=== PATIENT | male | born 1975 | race Caucasian/White ===

== ENCOUNTER 2017-02-21 17:22 | Emergency (ER) | payer MEDICAID ==
[~2017-02-21] VITALS: Ht 167.6 cm; Wt 52.2 kg
[2017-02-21 17:25] VITALS: BP 110/72
[2017-02-21] MEDS ORDERED: SODIUM CHLORIDE 0.9% 1,000ML IVBOLUS ONE (18:30)
[2017-02-21] MEDS ORDERED: MORPHINE SULFATE 4 MG/ML, 1ML IVPush PRN (18:30)
[2017-02-21] MEDS ORDERED: LORazepam 2 MG/ML, 1ML IVPush ONE (18:30)
[2017-02-21] MEDS ORDERED: PIPERACILLIN/TAZO/PMX 3.375GM 50 ML IVPB ONE (18:30)
[2017-02-21] MEDS ORDERED: ONDANSETRON 2MG/ML, 2ML IVPush ONE (18:30)
[2017-02-21] MEDS ORDERED: SODIUM CHLORIDE FLUSH 10ML SYR IVF ONE (18:30)
== END 2017-02-21 18:27 | disposition left against medical advice (07) ==
LOC: ED 17:30
DX: L03.114 Cellulitis of left upper limb (principal)
CPT/HCPCS: 99281

== ENCOUNTER 2017-02-21 23:42 | Inpatient (IN) | payer MEDICAID ==
[~2017-02-21] VITALS: Ht 165.1 cm; Wt 62.0 kg
[2017-02-22] MEDS ORDERED: SODIUM CHLORIDE 0.9% 1,000ML IVBOLUS ONE (01:00)
[2017-02-22] MEDS ORDERED: VANCOMYCIN PMX 1GM/200ML 200 ML IV ONE (01:00)
[2017-02-22] MEDS ORDERED: VANCOMYCIN PER PHARMACY IV ONE (01:00)
[2017-02-22] MEDS ORDERED: CEFTRIAXONE PMX 1GM/50ML 50 ML IVPB ONE (01:00)
[2017-02-22] MEDS ORDERED: CEFTRIAXONE PMX 1GM/50ML 50 ML ONE (01:03)
[2017-02-22 01:22] LABS: MEAN CORPUSCULAR HEMOGLOBIN 29.4 pg (27.5-34.5); MEAN CORPUSCULAR HGB CONC 33.6 g/dL (33.2-36.2); MEAN CORPUSCULAR VOLUME 87.7 fL (81-97); MEAN PLATELET VOLUME 7.2 fL (7.4-10.4); PLATELET COUNT 351 x10^3/uL (130-400); RED BLOOD COUNT 4.71 x10^6/uL (4.38-5.82); RED CELL DISTRIBUTION WIDTH 13.1 % (9.4-14.8)
[2017-02-22 01:34] LABS: ALBUMIN 3.1 g/dL (3.4-5.0); ANION GAP 11 mmol/L (5-15); CALCIUM 8.4 mg/dL (8.5-10.1); CHLORIDE 96 mmol/L (98-107); CREATININE 0.68 mg/dL (0.7-1.3)
[2017-02-22] MEDS ORDERED: IBUPROFEN 200 MG TABLET PO ONE (02:00)
[2017-02-22] MEDS ORDERED: SODIUM CHLORIDE 0.9% 1,000 ML IV ONE (02:01)
[2017-02-22 02:13] LABS: BASOPHILS # (AUTO) 0.02 x10^3/uL (0-0.1); BASOPHILS % (AUTO) 0 % (0-1); EOSINOPHILS # (AUTO) 0.05 x10^3/uL (0-0.4); EOSINOPHILS % (AUTO) 0 % (1-7); LYMPHOCYTES # (AUTO) 1.75 x10^3/uL (1-3.4); LYMPHOCYTES % (AUTO) 10 % (22-44); MD SCAN; MONOCYTES # (AUTO) 1.46 x10^3/uL (0.2-0.8); MONOCYTES % (AUTO) 8 % (2-9); NEUTROPHILS % (AUTO) 82 % (42-75)
[2017-02-22] MEDS ORDERED: IBUPROFEN 200 MG TABLET ONE (02:20)
[2017-02-22] MEDS ORDERED: MORPHINE SULFATE 4 MG/ML, 1ML IVPush PRN (02:30)
[2017-02-22] MEDS ORDERED: ONDANSETRON 2MG/ML, 2ML IVPush PRN ×2 (02:30→03:30)
[2017-02-22 02:52] VITALS: BP 129/84
[2017-02-22] MEDS ORDERED: VANCOMYCIN PER PHARMACY MC PRN (03:00)
[2017-02-22] MEDS ORDERED: POLYETHYLENE GLYCOL 17 GM PACKET PO PRN (03:30)
[2017-02-22] MEDS: NICOTINE 7 MG/24 HR PATCH.TD24 TD SCH (03:30)
[2017-02-22] MEDS ORDERED: KETOROLAC 30 MG/1 ML IM PRN (03:30)
[2017-02-22] MEDS ORDERED: ENALAPRILAT 1.25 MG/ML, 2ML IVPush PRN (03:30)
[2017-02-22] MEDS ORDERED: hydrALAzine 20 MG/ML, 1ML IVPush PRN (03:30)
[2017-02-22] MEDS ORDERED: BISACODYL 10 MG SUPP PR PRN (03:30)
[2017-02-22 03:48] LABS: HCT (SEDRATE) 41.3 % (39.2-51.8)
[2017-02-22] MEDS: CEFEPIME 2 GM in DEXTROSE 5% 100 ML IV SCH ×3 (03:57→19:32)
[2017-02-22] MEDS: OXYcodone IR 5MG TABLET PO PRN ×2 (03:58→13:09)
[2017-02-22] MEDS: SODIUM CHLORIDE 0.9% 1,000 ML IV SCH ×2 (03:58→13:56)
[2017-02-22 04:07] LABS: HEMOGLOBIN A1C 5.3 % (4.2-6.3)
[2017-02-22 04:09] LABS: FREE T4 (FREE THYROXINE) 1.92 ng/dL (0.76-1.46); THYROID STIMULATING HORMONE 0.608 mIU/L (0.358-3.740)
[2017-02-22] MEDS ORDERED: PHARMACOKINETIC MONITORING MC PRN (04:30)
[2017-02-22] MEDS ORDERED: PHARMACOKINETIC CONSULTATION MC ONE (04:30)
[2017-02-22 08:40] VITALS: BP 108/63
[2017-02-22] MEDS: SENNA/DOCUSATE TABLET PO SCH (09:45)
[2017-02-22 14:04] VITALS: BP 113/73
[2017-02-22] MEDS: VANCOMYCIN PMX 1GM/200ML 200 ML IV SCH (14:04)
[2017-02-22] MEDS ORDERED: METHADONE 10 MG TABLET PO PRN (17:00)
[2017-02-22] MEDS: morphine SULFATE 10 MG/ML, 1ML IVPush PRN ×2 (19:31→22:52)
[2017-02-22 19:39] VITALS: BP 128/80
[2017-02-22] MEDS: METHADONE 10 MG TABLET PO SCH (20:30)
[2017-02-23] MEDS ORDERED: MORPHINE SULFATE 4 MG/ML, 1ML ONE (01:32)
[2017-02-23 01:38] VITALS: BP 147/88
[2017-02-23] MEDS: morphine SULFATE 10 MG/ML, 1ML IVPush PRN ×5 (01:39→21:48)
[2017-02-23] MEDS: VANCOMYCIN PMX 1GM/200ML 200 ML IV SCH ×2 (01:54→13:38)
[2017-02-23] MEDS: NICOTINE 7 MG/24 HR PATCH.TD24 TD SCH (03:30)
[2017-02-23] MEDS: CEFEPIME 2 GM in DEXTROSE 5% 100 ML IV SCH ×3 (04:21→21:41)
[2017-02-23 05:19] LABS: ANION GAP 7 mmol/L (5-15); BASOPHILS # (AUTO) 0.09 x10^3/uL (0-0.1); BASOPHILS % (AUTO) 1 % (0-1); CHLORIDE 102 mmol/L (98-107); EOSINOPHILS % (AUTO) 2 % (1-7); LYMPHOCYTES # (AUTO) 2.69 x10^3/uL (1-3.4); LYMPHOCYTES % (AUTO) 21 % (22-44); MD NO; MEAN CORPUSCULAR HEMOGLOBIN 29.6 pg (27.5-34.5); MEAN CORPUSCULAR HGB CONC 33.9 g/dL (33.2-36.2); MEAN CORPUSCULAR VOLUME 87.4 fL (81-97); MEAN PLATELET VOLUME 7.5 fL (7.4-10.4); MONOCYTES # (AUTO) 1.27 x10^3/uL (0.2-0.8); MONOCYTES % (AUTO) 10 % (2-9); NEUTROPHILS # (AUTO) 8.79 x10^3/uL (1.8-6.8); NEUTROPHILS % (AUTO) 67 % (42-75); PLATELET COUNT 250 x10^3/uL (130-400); RED BLOOD COUNT 4.14 x10^6/uL (4.38-5.82); RED CELL DISTRIBUTION WIDTH 12.9 % (9.4-14.8)
[2017-02-23 05:23] LABS: ALANINE AMINOTRANSFERASE 23 U/L (12-78); ALKALINE PHOSPHATASE 78 U/L (45-117); BILIRUBIN,TOTAL 0.2 mg/dL (0.2-1.0); CHOL/HDL RATIO 5.3; CHOLESTEROL, TOTAL 85 mg/dL (140-239); CREATININE 0.46 mg/dL (0.7-1.3); HDL CHOLESTEROL (DIRECT) 16 mg/dL (40-60); TOTAL PROTEIN 6.7 g/dL (6.4-8.2); TRIGLYCERIDES 106 mg/dL (50-200); VLDL CHOLESTEROL 21 mg/dL (0-25)
[2017-02-23 05:24] LABS: HDL CHOL % 19 % (26-37); LDL CHOLESTEROL,CALCULATED 48 mg/dL (54-169)
[2017-02-23] MEDS: SENNA/DOCUSATE TABLET PO SCH (08:57)
[2017-02-23] MEDS: METHADONE 10 MG TABLET PO SCH ×2 (08:57→11:53)
[2017-02-23] MEDS ORDERED: GADOBUTROL 7.5 MMOL/7.5 ML PFS ONE (09:50)
[2017-02-23 09:55] VITALS: BP 133/68
[2017-02-23 13:35] VITALS: BP 112/69
[2017-02-23] MEDS ORDERED: MIDAZOLAM 1 MG/ML, 2ML ONE (18:31)
[2017-02-23] MEDS ORDERED: FENTANYL PF 250 MCG/5ML ONE (18:31)
[2017-02-23] MEDS ORDERED: PROPOFOL 10 MG/ML, 20ML ONE (18:32)
[2017-02-23] MEDS ORDERED: OXYcodone 5 MG/5 ML ORAL.SOL UDC PO PRN (19:00)
[2017-02-23] MEDS ORDERED: KETOROLAC 30 MG/1 ML IV PRN (19:00)
[2017-02-23] MEDS ORDERED: HYDROmorphone 1 MG/ML, 1ML IV PRN (19:00)
[2017-02-23] MEDS ORDERED: LABETALOL 5MG/ML, 20ML IV PRN (19:00)
[2017-02-23] MEDS ORDERED: ONDANSETRON 2MG/ML, 2ML IVPush PRN (19:00)
[2017-02-23] MEDS ORDERED: ALBUTEROL SULFATE 2.5 MG/3 ML NPPB PRN (19:00)
[2017-02-23] MEDS ORDERED: FENTANYL PF 100 MCG/2ML ONE (19:20)
[2017-02-23] MEDS ORDERED: OXYcodone 5 MG/5 ML ORAL.SOL UDC ONE (19:20)
[2017-02-23] MEDS: FENTANYL PF 100 MCG/2ML IV PRN ×2 (19:25→19:30)
[2017-02-23 20:00] VITALS: BP 121/83
[2017-02-24 02:00] VITALS: BP 122/70
[2017-02-24] MEDS: VANCOMYCIN 1,500 MG in SODIUM CHLORIDE 0.9% 250 ML IV SCH ×2 (02:26→13:51)
[2017-02-24] MEDS: NICOTINE 7 MG/24 HR PATCH.TD24 TD SCH (03:30)
[2017-02-24] MEDS: CEFEPIME 2 GM in DEXTROSE 5% 100 ML IV SCH ×3 (05:43→22:09)
[2017-02-24] MEDS: morphine SULFATE 10 MG/ML, 1ML IVPush PRN ×5 (05:46→22:09)
[2017-02-24] MEDS: SENNA/DOCUSATE TABLET PO SCH (08:45)
[2017-02-24] MEDS: METHADONE 10 MG TABLET PO SCH ×2 (08:45→23:20)
[2017-02-24] MEDS: OXYcodone IR 5MG TABLET PO PRN ×3 (08:50→17:16)
[2017-02-24 09:00] VITALS: BP 131/90
[2017-02-24 14:23] VITALS: BP 126/83
[2017-02-24] MEDS ORDERED: KETOROLAC 30 MG/1 ML IV PRN (15:30)
[2017-02-24 20:00] VITALS: BP 133/81
[2017-02-25] MEDS: VANCOMYCIN 1,500 MG in SODIUM CHLORIDE 0.9% 250 ML IV SCH ×2 (01:46→13:41)
[2017-02-25 02:00] VITALS: BP 125/77
[2017-02-25] MEDS: NICOTINE 7 MG/24 HR PATCH.TD24 TD SCH (03:30)
[2017-02-25] MEDS: CEFEPIME 2 GM in DEXTROSE 5% 100 ML IV SCH ×3 (05:50→21:47)
[2017-02-25] MEDS: morphine SULFATE 10 MG/ML, 1ML IVPush PRN ×4 (05:58→23:37)
[2017-02-25 06:28] VITALS: BP 126/79
[2017-02-25 06:30] LABS: MEAN CORPUSCULAR HEMOGLOBIN 29.5 pg (27.5-34.5); MEAN CORPUSCULAR HGB CONC 33.7 g/dL (33.2-36.2); MEAN CORPUSCULAR VOLUME 87.5 fL (81-97); MEAN PLATELET VOLUME 7.1 fL (7.4-10.4); PLATELET COUNT 378 x10^3/uL (130-400); RED BLOOD COUNT 4.26 x10^6/uL (4.38-5.82)
[2017-02-25 06:40] LABS: ANION GAP 6 mmol/L (5-15); CALCIUM 8.1 mg/dL (8.5-10.1); CHLORIDE 104 mmol/L (98-107); CREATININE 0.52 mg/dL (0.7-1.3)
[2017-02-25 07:05] LABS: MD YES
[2017-02-25 07:08] LABS: EOS#(MANUAL) 0.67 x10^3/uL (0.0-0.4); EOS% (MANUAL) 7 % (1-7); LYMPH#(MANUAL) 4.99 x10^3/uL (1-3.4); LYMPHS% (MANUAL) 52 % (22-44); MONOS#(MANUAL) 0.38 x10^3/uL (0.3-2.7); MONOS% (MANUAL) 4 % (2-9); REACTIVE LYMPHS # (MANUAL) 0.29 x10^3/uL (0-0); REACTIVE LYMPHS % (MANUAL) 3 % (0-0); SEG#(MANUAL) 3.26 x10^3/uL (1.8-6.8); SEGS% (MANUAL) 34 % (42-75)
[2017-02-25 07:11] LABS: <PLATELET ESTIMATE> ADEQUATE; <PLT MORPHOLOGY> NORMAL PLT MORPH; POLYCHROMASIA 1+
[2017-02-25] MEDS: METHADONE 10 MG TABLET PO SCH ×2 (09:06→21:00)
[2017-02-25] MEDS: SENNA/DOCUSATE TABLET PO SCH (09:08)
[2017-02-25] MEDS ORDERED: MAGNESIUM SULFATE PMX 2GM/50ML 50 ML IV ONE (13:30)
[2017-02-25 14:25] VITALS: BP 130/79
[2017-02-25 19:27] VITALS: BP 116/74
[2017-02-26 01:35] VITALS: BP 124/78
[2017-02-26] MEDS: VANCOMYCIN 1,500 MG in SODIUM CHLORIDE 0.9% 250 ML IV SCH ×2 (01:56→15:21)
[2017-02-26] MEDS: OXYcodone IR 5MG TABLET PO PRN (01:57)
[2017-02-26] MEDS: NICOTINE 7 MG/24 HR PATCH.TD24 TD SCH (03:30)
[2017-02-26] MEDS: CEFEPIME 2 GM in DEXTROSE 5% 100 ML IV SCH ×3 (05:03→21:15)
[2017-02-26] MEDS: morphine SULFATE 10 MG/ML, 1ML IVPush PRN ×4 (06:11→21:15)
[2017-02-26 08:04] VITALS: BP 124/81
[2017-02-26] MEDS: METHADONE 10 MG TABLET PO SCH ×2 (09:00→21:00)
[2017-02-26] MEDS: SENNA/DOCUSATE TABLET PO SCH (10:40)
[2017-02-26 14:47] VITALS: BP 119/80
[2017-02-26 19:32] VITALS: BP 118/77
[2017-02-27] MEDS: VANCOMYCIN 1,500 MG in SODIUM CHLORIDE 0.9% 250 ML IV SCH ×2 (02:04→13:27)
[2017-02-27 02:37] VITALS: BP 126/82
[2017-02-27] MEDS: NICOTINE 7 MG/24 HR PATCH.TD24 TD SCH (03:30)
[2017-02-27] MEDS: CEFEPIME 2 GM in DEXTROSE 5% 100 ML IV SCH ×3 (05:43→23:34)
[2017-02-27 08:45] VITALS: BP 115/76
[2017-02-27] MEDS: SENNA/DOCUSATE TABLET PO SCH (09:00)
[2017-02-27] MEDS: METHADONE 10 MG TABLET PO SCH ×2 (09:00→20:08)
[2017-02-27 09:24] LABS: BASOPHILS # (AUTO) 0.04 x10^3/uL (0-0.1); BASOPHILS % (AUTO) 0 % (0-1); EOSINOPHILS # (AUTO) 0.35 x10^3/uL (0-0.4); EOSINOPHILS % (AUTO) 3 % (1-7); LYMPHOCYTES # (AUTO) 3.83 x10^3/uL (1-3.4); LYMPHOCYTES % (AUTO) 34 % (22-44); MD NO; MEAN CORPUSCULAR HEMOGLOBIN 29.1 pg (27.5-34.5); MEAN CORPUSCULAR HGB CONC 33.6 g/dL (33.2-36.2); MEAN CORPUSCULAR VOLUME 86.7 fL (81-97); MEAN PLATELET VOLUME 6.7 fL (7.4-10.4); MONOCYTES # (AUTO) 0.73 x10^3/uL (0.2-0.8); MONOCYTES % (AUTO) 6 % (2-9); NEUTROPHILS # (AUTO) 6.37 x10^3/uL (1.8-6.8); NEUTROPHILS % (AUTO) 56 % (42-75); PLATELET COUNT 415 x10^3/uL (130-400); RED BLOOD COUNT 5.14 x10^6/uL (4.38-5.82); RED CELL DISTRIBUTION WIDTH 13.1 % (9.4-14.8)
[2017-02-27 09:31] LABS: ANION GAP 7 mmol/L (5-15); CALCIUM 8.9 mg/dL (8.5-10.1); CHLORIDE 100 mmol/L (98-107)
[2017-02-27 09:32] LABS: CREATININE 0.62 mg/dL (0.7-1.3)
[2017-02-27] MEDS: morphine SULFATE 10 MG/ML, 1ML IVPush PRN ×2 (09:41→13:38)
[2017-02-27] MEDS: OXYcodone IR 5MG TABLET PO PRN (11:56)
[2017-02-27 14:30] VITALS: BP 118/75
[2017-02-27 18:56] VITALS: BP 116/77
[2017-02-28] MEDS: morphine SULFATE 10 MG/ML, 1ML IVPush PRN ×3 (00:08→12:55)
[2017-02-28] MEDS: VANCOMYCIN 1,500 MG in SODIUM CHLORIDE 0.9% 250 ML IV SCH (02:00)
[2017-02-28] MEDS: NICOTINE 7 MG/24 HR PATCH.TD24 TD SCH (03:30)
[2017-02-28 03:45] VITALS: BP 98/61
[2017-02-28 08:04] VITALS: BP 102/62
[2017-02-28] MEDS: SENNA/DOCUSATE TABLET PO SCH (08:25)
[2017-02-28] MEDS: METHADONE 10 MG TABLET PO SCH (09:00)
[2017-02-28] MEDS ORDERED: CEPHALEXIN 500 MG CAPSULE PO SCH (10:00)
[2017-02-28] MEDS ORDERED: IBUPROFEN 200 MG TABLET PO PRN (14:00)
[2017-02-28 14:30] VITALS: BP 107/70
== END 2017-02-28 17:00 | disposition left against medical advice (07) | DRG 854 ==
LOC: ED 02-22 01:30 → EDIP 02-22 02:01 → 4WST 02-22 02:46 → 4EST 02-26 05:51
PROVIDERS: ADMIT Internal Medicine; ATTEND Internal Medicine
PROC: 0KBD0ZZ Excision of Left Hand Muscle, Open Approach (ICD-10-PCS; principal; 2017-02-23 19:00)
DX: A41.9 Sepsis, unspecified organism (principal); E44.0 Moderate protein-calorie malnutrition; F11.20 Opioid dependence, uncomplicated; L02.512 Cutaneous abscess of left hand; L03.114 Cellulitis of left upper limb; F15.10 Other stimulant abuse, uncomplicated; F17.210 Nicotine dependence, cigarettes, uncomplicated; M65.9 Synovitis and tenosynovitis, unspecified; Z68.22 Body mass index [BMI] 22.0-22.9, adult; Z53.21 Procedure and treatment not carried out due to patient leaving prior to being seen by health care provider
CPT/HCPCS: 36415; 80048; 80053; 80061; 80202; 82040; 83036; 83605; 83735; 84145; 84439; 84443; 85025; 85651; 86140; 87015; 87040; 87070; 87075; 87102; 87116; 87147; 87205; 87206; 96365; 96375; A9585; J0696; J1885; J2250; J2704; J3010; J3370; J2270; J3475; J7030; J7050

== ENCOUNTER 2017-09-16 22:52 | Inpatient (IN) | payer MEDICAID ==
[~2017-09-16] VITALS: Ht 165.1 cm; Wt 52.1 kg
[2017-09-16] MEDS ORDERED: LIDOCAINE-MPF 2%, 2ML ONE (23:57)
[2017-09-16] MEDS ORDERED: MORPHINE SULFATE 4 MG/ML, 1ML ONE (23:57)
[2017-09-16] MEDS ORDERED: KETOROLAC 30 MG/1 ML ONE (23:57)
[2017-09-17] MEDS ORDERED: LIDOCAINE 2%, 20ML SQ ONE
[2017-09-17] MEDS ORDERED: KETOROLAC 30 MG/1 ML IVPush ONE
[2017-09-17] MEDS ORDERED: MORPHINE SULFATE 4 MG/ML, 1ML IVPush PRN
[2017-09-17 00:07] LABS: BASOPHILS # (AUTO) 0.05 x10^3/uL (0-0.1); BASOPHILS % (AUTO) 1 % (0-1); EOSINOPHILS # (AUTO) 0.16 x10^3/uL (0-0.4); EOSINOPHILS % (AUTO) 2 % (1-7); LYMPHOCYTES # (AUTO) 1.46 x10^3/uL (1-3.4); LYMPHOCYTES % (AUTO) 18 % (22-44); MD NO; MEAN CORPUSCULAR HEMOGLOBIN 29.5 pg (27.5-34.5); MEAN CORPUSCULAR VOLUME 86.6 fL (81-97); MONOCYTES % (AUTO) 9 % (2-9); NEUTROPHILS # (AUTO) 5.66 x10^3/uL (1.8-6.8); NEUTROPHILS % (AUTO) 71 % (42-75); PLATELET COUNT 391 x10^3/uL (130-400); RED BLOOD COUNT 4.23 x10^6/uL (4.38-5.82); RED CELL DISTRIBUTION WIDTH 13.1 % (9.4-14.8)
[2017-09-17 00:20] LABS: ALANINE AMINOTRANSFERASE 30 U/L (12-78); ALBUMIN 2.6 g/dL (3.4-5.0); ANION GAP 7 mmol/L (5-15); CALCIUM 8.3 mg/dL (8.5-10.1); CHLORIDE 102 mmol/L (98-107); CREATININE 0.64 mg/dL (0.7-1.3)
[2017-09-17 00:22] LABS: ALKALINE PHOSPHATASE 78 U/L (45-117); BILIRUBIN,TOTAL 0.3 mg/dL (0.2-1.0); TOTAL PROTEIN 7.7 g/dL (6.4-8.2)
[2017-09-17] MEDS ORDERED: VANCOMYCIN PER PHARMACY IV ONE (01:00)
[2017-09-17] MEDS ORDERED: CEFTRIAXONE 1,000 MG in SODIUM CHLORIDE 0.9% 50 ML IV ONE (01:00)
[2017-09-17] MEDS ORDERED: CEFTRIAXONE PMX 1GM/50ML 50 ML ONE (01:02)
[2017-09-17] MEDS ORDERED: VANCOMYCIN PMX 1GM/200ML 200 ML IV ONE (01:30)
[2017-09-17] MEDS ORDERED: SODIUM CHLORIDE 0.9% 1,000 ML IV ONE (01:31)
[2017-09-17] MEDS ORDERED: ONDANSETRON 2MG/ML, 2ML IVPush PRN ×2 (02:00→03:00)
[2017-09-17] MEDS ORDERED: PROMETHAZINE 25 MG/ML, 1ML IM PRN (03:00)
[2017-09-17] MEDS ORDERED: LABETALOL 5MG/ML, 20ML IVPush PRN (03:00)
[2017-09-17] MEDS ORDERED: OXYcodone IR 5MG TABLET PO PRN (03:00)
[2017-09-17] MEDS ORDERED: BISACODYL 10 MG SUPP PR PRN (03:00)
[2017-09-17] MEDS ORDERED: ACETAMINOPHEN 325 MG TABLET PO PRN (03:00)
[2017-09-17] MEDS ORDERED: hydrALAzine 20 MG/ML, 1ML IVPush PRN (03:00)
[2017-09-17] MEDS ORDERED: POLYETHYLENE GLYCOL 17 GM PACKET PO PRN (03:00)
[2017-09-17] MEDS ORDERED: HEPARIN 5,000 UNITS/ML, 1ML SQ SCH (03:00)
[2017-09-17] MEDS ORDERED: DOCUSATE 100 MG CAPSULE PO PRN (03:00)
[2017-09-17] MEDS ORDERED: ONDANSETRON ODT 4 MG PO PRN (03:00)
[2017-09-17] MEDS ORDERED: VANCOMYCIN PER PHARMACY MC PRN (03:30)
[2017-09-17] MEDS ORDERED: PHARMACOKINETIC CONSULTATION MC ONE (03:30)
[2017-09-17] MEDS ORDERED: PHARMACOKINETIC MONITORING MC PRN (03:30)
[2017-09-17 04:13] LABS: HEMOGLOBIN A1C 5.6 % (4.2-6.3)
[2017-09-17] MEDS: PIPERACILLIN/TAZO/PMX 3.375GM 50 ML IV SCH ×5 (04:14→22:16)
[2017-09-17 04:16] LABS: C-REACTIVE PROTEIN, QUANT 8.5 mg/dL (0.02-0.49); FREE T4 (FREE THYROXINE) 1.68 ng/dL (0.76-1.46); THYROID STIMULATING HORMONE 0.716 mIU/L (0.358-3.740)
[2017-09-17 07:12] LABS: HCT (SEDRATE) 39.7 % (39.2-51.8)
[2017-09-17] MEDS: SODIUM CHLORIDE 0.9% 1,000 ML IV SCH ×2 (12:36→20:00)
[2017-09-17] MEDS: morphine SULFATE 10 MG/ML, 1ML IVPush PRN ×3 (13:19→16:50)
[2017-09-17] MEDS: VANCOMYCIN PMX 1GM/200ML 200 ML IV SCH (13:27)
[2017-09-17 14:55] LABS: MICROSCOPIC NOT IND
[2017-09-17 14:57] LABS: CULTURE INDICATED? NO
[2017-09-17 15:09] LABS: AMPHETAMINE SCREEN, URINE Positive (Negative); BARBITURATE SCREEN, URINE Negative (Negative); BENZODIAZEPINE SCREEN, URINE Negative (Negative); CANNABINOID SCREEN, URINE Negative (Negative); COCAINE SCREEN, URINE Negative (Negative); METHADONE SCREEN, URINE Negative (Negative); OPIATE SCREEN, URINE Positive (Negative)
[2017-09-17] MEDS ORDERED: KETOROLAC 30 MG/1 ML IVPush PRN (15:30)
[2017-09-17] MEDS ORDERED: GABAPENTIN 300 MG CAPSULE PO PRN (15:30)
[2017-09-17 15:57] VITALS: BP 104/75
[2017-09-17] MEDS: ENOXAPARIN 40 MG/0.4 ML SQ SCH ×2 (16:21→16:24)
[2017-09-17] MEDS: METHADONE 10 MG TABLET PO SCH (17:52)
[2017-09-17] MEDS ORDERED: METHADONE ORAL.SOLN 1 MG/ML PO SCH (18:00)
[2017-09-17 20:03] VITALS: BP 116/79
[2017-09-18] MEDS: VANCOMYCIN PMX 1GM/200ML 200 ML IV SCH ×2 (00:41→01:54)
[2017-09-18 02:12] VITALS: BP 117/76
[2017-09-18] MEDS: PIPERACILLIN/TAZO/PMX 3.375GM 50 ML IV SCH ×3 (03:46→09:18)
[2017-09-18] MEDS: METHADONE 10 MG TABLET PO SCH ×2 (05:53→10:03)
[2017-09-18 06:14] LABS: BASOPHILS # (AUTO) 0.07 x10^3/uL (0-0.1); BASOPHILS % (AUTO) 1 % (0-1); EOSINOPHILS # (AUTO) 0.19 x10^3/uL (0-0.4); EOSINOPHILS % (AUTO) 3 % (1-7); LYMPHOCYTES # (AUTO) 2.06 x10^3/uL (1-3.4); LYMPHOCYTES % (AUTO) 30 % (22-44); MD NO; MEAN CORPUSCULAR HEMOGLOBIN 29.8 pg (27.5-34.5); MEAN CORPUSCULAR HGB CONC 34.1 g/dL (33.2-36.2); MEAN CORPUSCULAR VOLUME 87.3 fL (81-97); MEAN PLATELET VOLUME 7.4 fL (7.4-10.4); MONOCYTES # (AUTO) 0.45 x10^3/uL (0.2-0.8); MONOCYTES % (AUTO) 7 % (2-9); NEUTROPHILS # (AUTO) 4.06 x10^3/uL (1.8-6.8); NEUTROPHILS % (AUTO) 60 % (42-75); PLATELET COUNT 361 x10^3/uL (130-400); RED CELL DISTRIBUTION WIDTH 13.6 % (9.4-14.8)
[2017-09-18 06:25] LABS: ALANINE AMINOTRANSFERASE 29 U/L (12-78); ALBUMIN 2.3 g/dL (3.4-5.0); ANION GAP 6 mmol/L (5-15); CALCIUM 8.3 mg/dL (8.5-10.1); CHLORIDE 107 mmol/L (98-107)
[2017-09-18 06:34] LABS: ALKALINE PHOSPHATASE 77 U/L (45-117); BILIRUBIN,TOTAL 0.3 mg/dL (0.2-1.0); CHOL/HDL RATIO 4.1; CHOLESTEROL, TOTAL 120 mg/dL (140-239); CREATININE 0.68 mg/dL (0.7-1.3); HDL CHOL % 24 % (26-37); HDL CHOLESTEROL (DIRECT) 29 mg/dL (40-60); LDL CHOLESTEROL,CALCULATED 61 mg/dL (54-169); LDL/HDL RATIO 2.1 (0.5-3.0); TOTAL PROTEIN 7.3 g/dL (6.4-8.2); TRIGLYCERIDES 151 mg/dL (50-200); VLDL CHOLESTEROL 30 mg/dL (0-25)
[2017-09-18] MEDS: SODIUM CHLORIDE 0.9% 1,000 ML IV SCH (09:00)
[2017-09-18 09:21] VITALS: BP 117/78
== END 2017-09-18 10:36 | disposition left against medical advice (07) | DRG 602 ==
LOC: ED 23:59 → EDIP 09-17 01:31 → 4NOR 09-17 03:00
PROVIDERS: ADMIT Internal Medicine; ATTEND Internal Medicine
DX: L03.221 Cellulitis of neck (principal); E43 Unspecified severe protein-calorie malnutrition; R64 Cachexia; Z68.1 Body mass index [BMI] 19.9 or less, adult; L02.11 Cutaneous abscess of neck; L02.92 Furuncle, unspecified; Z53.21 Procedure and treatment not carried out due to patient leaving prior to being seen by health care provider; F15.10 Other stimulant abuse, uncomplicated; F11.10 Opioid abuse, uncomplicated; Z88.1 Allergy status to other antibiotic agents; Z88.6 Allergy status to analgesic agent; Z87.891 Personal history of nicotine dependence; Z88.8 Allergy status to other drugs, medicaments and biological substances
CPT/HCPCS: 10060; 36415; 80053; 80061; 80307; 81003; 83036; 83735; 84439; 84443; 85025; 85651; 86140; 86803; 87040; 87070; 87077; 87205; 87521; 87806; 96365; 96375; 99285; J0696; J1644; J1650; J1885; J2543; J3370; G0475; J2270; J7030

== ENCOUNTER 2017-09-21 17:48 | Emergency (ER) | payer MEDICAID ==
[~2017-09-21] VITALS: Ht 167.6 cm; Wt 57.0 kg
[2017-09-21 17:52] VITALS: BP 118/76
[2017-09-21] MEDS ORDERED: SULFAMETH./TRIMETHOPRIM DS 800MG/160MG TABLET ONE (18:19)
[2017-09-21] MEDS ORDERED: SULFAMETH./TRIMETHOPRIM DS 800MG/160MG TABLET PO ONE (18:30)
== END 2017-09-21 18:40 | disposition home or self-care (01) ==
LOC: ED 18:34
DX: L02.11 Cutaneous abscess of neck (principal); Z02.89 Encounter for other administrative examinations
CPT/HCPCS: 99283

== ENCOUNTER 2017-11-16 13:31 | Inpatient (IN) | payer OTHER, MEDICAID ==
[~2017-11-16] VITALS: Ht 165.1 cm; Wt 53.7 kg
[~2017-11-16 13:31] MED LIST: PROPOFOL 10 MG/ML, 100ML IV ONE; PROPOFOL 10 MG/ML, 20ML ONE; SUCCINYLCHOLINE 20 MG/ML, 10ML ONE
[2017-11-16] MEDS ORDERED: MORPHINE SULFATE 4 MG/ML, 1ML ONE ×2 (13:47→15:40)
[2017-11-16] MEDS ORDERED: KETOROLAC 30 MG/1 ML ONE (13:48)
[2017-11-16] MEDS ORDERED: SODIUM CHLORIDE 0.9% 1,000ML IVBOLUS ONE ×2 (14:00→15:30)
[2017-11-16] MEDS ORDERED: KETOROLAC 30 MG/1 ML IVPush ONE (14:00)
[2017-11-16 14:13] LABS: MEAN CORPUSCULAR HEMOGLOBIN 29.4 pg (27.5-34.5); MEAN CORPUSCULAR HGB CONC 33.5 g/dL (33.2-36.2); MEAN CORPUSCULAR VOLUME 87.8 fL (81-97); MEAN PLATELET VOLUME 7.5 fL (7.4-10.4); PLATELET COUNT 507 x10^3/uL (130-400); RED BLOOD COUNT 5.51 x10^6/uL (4.38-5.82); RED CELL DISTRIBUTION WIDTH 17.1 % (9.4-14.8)
[2017-11-16 14:16] LABS: INTERNATIONAL NORMALIZED RATIO 1.15 (0.93-1.1); PROTHROMBIN TIME 11.8 Seconds (9.6-11.5)
[2017-11-16 14:19] LABS: ALANINE AMINOTRANSFERASE 27 U/L (12-78); ALBUMIN 2.1 g/dL (3.4-5.0); ANION GAP 14 mmol/L (5-15); CALCIUM 8.5 mg/dL (8.5-10.1); CHLORIDE 94 mmol/L (98-107); HCT (SEDRATE) 48.4 % (39.2-51.8)
[2017-11-16 14:25] LABS: ALKALINE PHOSPHATASE 95 U/L (45-117); BILIRUBIN,TOTAL 0.5 mg/dL (0.2-1.0); CREATININE 1.56 mg/dL (0.7-1.3); TOTAL PROTEIN 7.4 g/dL (6.4-8.2)
[2017-11-16 14:26] LABS: C-REACTIVE PROTEIN, QUANT > 19.00 mg/dL (0.02-0.49)
[2017-11-16] MEDS: MORPHINE SULFATE 4 MG/ML, 1ML IVPush PRN ×2 (14:50→23:43)
[2017-11-16 15:20] LABS: MD YES
[2017-11-16 15:22] LABS: BAND#(MANUAL) 2.14 x10^3/uL; BANDS%(MANUAL) 31 % (0-7); LYMPH#(MANUAL) 1.38 x10^3/uL (1-3.4); LYMPHS% (MANUAL) 20 % (22-44); METAMYELOCYTES# (MANUAL) 0.21 x10^3/uL (0-0); METAMYELOCYTES% (MANUAL) 3 % (0-1); MONOS#(MANUAL) 0.21 x10^3/uL (0.3-2.7); MONOS% (MANUAL) 3 % (2-9); SEG#(MANUAL) 2.97 x10^3/uL (1.8-6.8); SEGS% (MANUAL) 43 % (42-75)
[2017-11-16 15:23] LABS: <PLATELET ESTIMATE> INCREASED; <PLT MORPHOLOGY> NORMAL PLT MORPH; <RBC MORPHOLOGY> NORMAL; TOXIC GRAN 2+
[2017-11-16] MEDS ORDERED: OMNIPAQUE 350 MG/ML, 150 ML BOTTLE ONE (15:54)
[2017-11-16] MEDS ORDERED: PIPERACILLIN/TAZO/PMX 3.375GM 50 ML ONE (16:22)
[2017-11-16] MEDS ORDERED: VANCOMYCIN PMX 1GM/200ML 200 ML IV ONE (16:30)
[2017-11-16] MEDS ORDERED: PHARMACOKINETIC CONSULTATION MC ONE (16:30)
[2017-11-16] MEDS ORDERED: PIPERACILLIN/TAZO/PMX 3.375GM 50 ML IV ONE (16:30)
[2017-11-16] MEDS ORDERED: VANCOMYCIN PER PHARMACY MC PRN (16:30)
[2017-11-16] MEDS ORDERED: HYDROmorphone 2 MG/ML, 1ML IVPush PRN (17:00)
[2017-11-16] MEDS ORDERED: CLINDAMYCIN PMX 900MG/50ML 50 ML IV ONE (17:00)
[2017-11-16] MEDS ORDERED: BISACODYL 10 MG SUPP PR PRN (18:00)
[2017-11-16] MEDS ORDERED: GABAPENTIN 300 MG CAPSULE PO PRN (18:00)
[2017-11-16] MEDS ORDERED: ONDANSETRON ODT 4 MG PO PRN (18:00)
[2017-11-16] MEDS ORDERED: LABETALOL 5MG/ML, 20ML IVPush PRN (18:00)
[2017-11-16] MEDS ORDERED: DOCUSATE 100 MG CAPSULE PO PRN (18:00)
[2017-11-16] MEDS ORDERED: NICOTINE 7 MG/24 HR PATCH.TD24 TD SCH (18:00)
[2017-11-16] MEDS ORDERED: morphine SULFATE 10 MG/ML, 1ML IVPush PRN (18:00)
[2017-11-16] MEDS ORDERED: KETOROLAC 30 MG/1 ML IV PRN (18:00)
[2017-11-16] MEDS ORDERED: ENALAPRILAT 1.25 MG/ML, 2ML IVPush PRN (18:00)
[2017-11-16] MEDS ORDERED: ONDANSETRON 2MG/ML, 2ML IVPush PRN (18:00)
[2017-11-16] MEDS: HYDROmorphone 1 MG/ML, 1ML IM PRN ×4 (18:30→23:46)
[2017-11-16] MEDS ORDERED: HYDROmorphone 2 MG/ML, 1ML ONE (18:36)
[2017-11-16] MEDS ORDERED: KETAMINE 50 MG/ML, 10ML ONE (18:44)
[2017-11-16] MEDS ORDERED: LIDOCAINE-MPF 2%, 2ML ONE (18:51)
[2017-11-16] MEDS ORDERED: KETAMINE 100 MG/ML, 5ML IV ONE (19:00)
[2017-11-16] MEDS ORDERED: LIDOCAINE 2%, 10ML INFIL ONE (19:30)
[2017-11-16] MEDS: SODIUM CHLORIDE 0.9% 1,000 ML IV SCH ×2 (21:00→23:35)
[2017-11-16] MEDS ORDERED: LORazepam 2 MG/ML, 1ML ONE (21:03)
[2017-11-16] MEDS ORDERED: PROPOFOL 100 ML IV PRN ×2 (21:30→22:01)
[2017-11-16] MEDS ORDERED: LORazepam 2 MG/ML, 1ML IVPush ONE (21:30)
[2017-11-16] MEDS ORDERED: PROPOFOL 10 MG/ML, 20ML IVPush ONE (21:30)
[2017-11-16] MEDS ORDERED: SUCCINYLCHOLINE 20 MG/ML, 10ML IVPush ONE (21:30)
[2017-11-16] MEDS ORDERED: CLINDAMYCIN PMX 900MG/50ML 50 ML ONE (21:48)
[2017-11-16] MEDS: NOREPINEPHRINE 4 MG in SODIUM CHLORIDE 0.9% 246 ML IV PRN (22:25)
[2017-11-16] MEDS ORDERED: LIDOCAINE-MPF 1%, 2ML ENDO PRN (22:30)
[2017-11-16] MEDS ORDERED: PHARMACY MAY ADJ FOR RENAL FX MC SCH (22:30)
[2017-11-16] MEDS ORDERED: VASOPRESSIN 100 UNIT in SODIUM CHLORIDE 0.9% 495 ML IV PRN (22:30)
[2017-11-16] MEDS ORDERED: PHENYLEPHRINE 20 MG in SODIUM CHLORIDE 0.9% 248 ML IV PRN (22:30)
[2017-11-16] MEDS ORDERED: FENTANYL PF 100 MCG/2ML IVPush PRN (22:30)
[2017-11-16] MEDS ORDERED: PIPERACILLIN/TAZO/PMX 3.375GM 50 ML IV SCH (23:59)
[2017-11-17] MEDS ORDERED: CALCIUM CHLORIDE 10%, 10ML SYR ONE
[2017-11-17] MEDS ORDERED: ATROPINE SYRINGE 0.1 MG/ML, 10ML ONE
[2017-11-17] MEDS ORDERED: EPINEPHRINE SYRINGE 0.1 MG/ML, 10ML ONE
[2017-11-17] MEDS ORDERED: AMIODARONE 50 MG/ML, 3ML ONE
[2017-11-17] MEDS ORDERED: MAGNESIUM SULFATE 1 GM/2 ML ONE
[2017-11-17] MEDS: NOREPINEPHRINE 4 MG in SODIUM CHLORIDE 0.9% 246 ML IV PRN (00:16)
[2017-11-17 00:30] VITALS: BP 144/94
[2017-11-17] MEDS: PIPERACILLIN/TAZO/PMX 3.375GM 50 ML IV SCH ×2 (00:46→06:34)
[2017-11-17] MEDS ORDERED: SODIUM CHLORIDE 0.9% 1,000ML IVBOLUS ONE ×2 (01:00→03:30)
[2017-11-17] MEDS: HEPARIN 5,000 UNITS/ML, 1ML SQ SCH ×2 (01:04→07:51)
[2017-11-17] MEDS: HYDROCORTISONE 100 MG INJ. IVPush SCH ×2 (01:04→09:00)
[2017-11-17] MEDS ORDERED: PHENYLEPHRINE 80 MG in SODIUM CHLORIDE 0.9% 242 ML IV PRN (02:26)
[2017-11-17] MEDS: NOREPINEPHRINE 8 MG in SODIUM CHLORIDE 0.9% 242 ML IV PRN ×2 (02:30→06:23)
[2017-11-17] MEDS: EPINEPHRINE 2 MG in SODIUM CHLORIDE 0.9% 248 ML IV PRN ×2 (03:12→06:31)
[2017-11-17] MEDS ORDERED: SODIUM BICARBONATE 1 MEQ/ML, 50ML VIAL IVPush STA (03:31)
[2017-11-17] MEDS ORDERED: SODIUM BICARB 8.4%, 50ML SYRINGE ONE ×2 (03:32)
[2017-11-17] MEDS ORDERED: SODIUM BICARBONATE 8.4% 150 MEQ in DEXTROSE 5% 1,000 ML IV SCH (04:00)
[2017-11-17 04:16] LABS: ALANINE AMINOTRANSFERASE 63 U/L (12-78); ALBUMIN 0.7 g/dL (3.4-5.0); ANION GAP 21 mmol/L (5-15); CHLORIDE 110 mmol/L (98-107); CREATININE 2.22 mg/dL (0.7-1.3)
[2017-11-17 04:17] LABS: MEAN CORPUSCULAR HEMOGLOBIN 29.8 pg (27.5-34.5); MEAN CORPUSCULAR HGB CONC 33.3 g/dL (33.2-36.2); MEAN CORPUSCULAR VOLUME 89.4 fL (81-97); MEAN PLATELET VOLUME 7.8 fL (7.4-10.4); PLATELET COUNT 225 x10^3/uL (130-400); RED BLOOD COUNT 3.26 x10^6/uL (4.38-5.82); RED CELL DISTRIBUTION WIDTH 17.9 % (9.4-14.8)
[2017-11-17 04:18] LABS: ALKALINE PHOSPHATASE 33 U/L (45-117); BILIRUBIN,TOTAL 0.4 mg/dL (0.2-1.0); TOTAL PROTEIN 2.9 g/dL (6.4-8.2)
[2017-11-17 04:30] VITALS: BP 96/68
[2017-11-17 04:31] LABS: CALCIUM 5.7 mg/dL (8.5-10.1)
[2017-11-17] MEDS ORDERED: DEXTROSE 50%, 50ML SYRINGE ONE ×2 (04:32)
[2017-11-17 04:36] LABS: MD YES
[2017-11-17 04:39] LABS: BAND#(MANUAL) 3.57 x10^3/uL; BANDS%(MANUAL) 42 % (0-7); LYMPH#(MANUAL) 1.02 x10^3/uL (1-3.4); LYMPHS% (MANUAL) 12 % (22-44); METAMYELOCYTES# (MANUAL) 0.51 x10^3/uL (0-0); METAMYELOCYTES% (MANUAL) 6 % (0-1); MONOS#(MANUAL) 0.09 x10^3/uL (0.3-2.7); MONOS% (MANUAL) 1 % (2-9); SEG#(MANUAL) 3.32 x10^3/uL (1.8-6.8); SEGS% (MANUAL) 39 % (42-75)
[2017-11-17 04:40] LABS: <PLATELET ESTIMATE> ADEQUATE; <PLT MORPHOLOGY> NORMAL PLT MORPH; <RBC MORPHOLOGY> NORMAL; TOXIC GRAN 2+
[2017-11-17] MEDS ORDERED: DEXTROSE 50%, 50ML SYRINGE IVPush ONE (05:00)
[2017-11-17] MEDS ORDERED: CALCIUM GLUCONATE 9.2 MEQ in SODIUM CHLORIDE 0.9% 100 ML IV ONE (05:00)
[2017-11-17 05:38] LABS: MICROSCOPIC INDICATED
[2017-11-17 05:45] LABS: AMPHETAMINE SCREEN, URINE Positive (Negative); BARBITURATE SCREEN, URINE Negative (Negative); BENZODIAZEPINE SCREEN, URINE Negative (Negative); CANNABINOID SCREEN, URINE Negative (Negative); COCAINE SCREEN, URINE Negative (Negative); METHADONE SCREEN, URINE Negative (Negative); OPIATE SCREEN, URINE Positive (Negative)
[2017-11-17 05:51] LABS: CULTURE INDICATED? NO
[2017-11-17] MEDS ORDERED: CLINDAMYCIN PMX 900MG/50ML 50 ML IV SCH (07:30)
[2017-11-17] MEDS ORDERED: FENTANYL PF 250 MCG/5ML ONE (07:30)
[2017-11-17] MEDS ORDERED: ALBUMIN HUMAN 25% 100 ML IV SCH (07:30)
[2017-11-17] MEDS ORDERED: ROCURONIUM 10MG/ML,5ML ONE (07:32)
[2017-11-17] MEDS ORDERED: PROPOFOL 10 MG/ML, 20ML ONE (07:33)
[2017-11-17] MEDS ORDERED: INSULIN SINGLE DOSE, ER SQ-INSULIN ONE ×2 (08:57→09:01)
[2017-11-17] MEDS ORDERED: GLUCAGON 1 MG ONE (08:58)
[2017-11-17] MEDS ORDERED: SENNA/DOCUSATE TABLET PO SCH (09:00)
== END 2017-11-17 09:09 | disposition expired | DRG 853 ==
LOC: ED 14:29 → 3NE 17:13 → EDIP 18:33 → CCU 23:08
PROVIDERS: ADMIT Internal Medicine; ATTEND Internal Medicine
PROC: 5A1935Z Respiratory Ventilation, Less than 24 Consecutive Hours (ICD-10-PCS; 2017-11-16)
PROC: 0BH17EZ Insertion of Endotracheal Airway into Trachea, Via Natural or Artificial Opening (ICD-10-PCS; 2017-11-16)
PROC: 02HV33Z Insertion of Infusion Device into Superior Vena Cava, Percutaneous Approach (ICD-10-PCS; 2017-11-16)
PROC: 5A12012 Performance of Cardiac Output, Single, Manual (ICD-10-PCS; 2017-11-17)
PROC: 0T9B70Z Drainage of Bladder with Drainage Device, Via Natural or Artificial Opening (ICD-10-PCS; 2017-11-17)
PROC: 0J9L0ZZ Drainage of Right Upper Leg Subcutaneous Tissue and Fascia, Open Approach (ICD-10-PCS; principal; 2017-11-17 07:15)
DX: A41.9 Sepsis, unspecified organism (principal); M72.6 Necrotizing fasciitis; J96.01 Acute respiratory failure with hypoxia; N17.0 Acute kidney failure with tubular necrosis; G93.41 Metabolic encephalopathy; E43 Unspecified severe protein-calorie malnutrition; R65.21 Severe sepsis with septic shock; J85.1 Abscess of lung with pneumonia; J16.8 Pneumonia due to other specified infectious organisms; L02.415 Cutaneous abscess of right lower limb; E87.1 Hypo-osmolality and hyponatremia; Z68.1 Body mass index [BMI] 19.9 or less, adult; F15.90 Other stimulant use, unspecified, uncomplicated; F11.90 Opioid use, unspecified, uncomplicated; B19.20 Unspecified viral hepatitis C without hepatic coma; Z88.8 Allergy status to other drugs, medicaments and biological substances; Z88.1 Allergy status to other antibiotic agents
CPT/HCPCS: 31500; 36415; 36556; 36600; 71045; 76700; 80053; 80307; 81001; 82330; 82533; 82803; 82947; 82962; 83605; 83735; 84132; 84295; 84478; 85014; 85018; 85025; 85610; 85651; 85730; 86140; 87040; 87070; 87077; 87081; 87147; 87186; 87205; 93005; 94002; 94003; 96361; 96365; 96366; 96375; G0378; J0461; J0610; J1170; J1644; J2543; J2704; J3010; J3370; J3475; J7070; P9047; Q9967; J0171; J0282; J0330; J1610; J1720; J1815; J2060; J2370; J7030; J7040; J7050